=== PATIENT | female | born 1960 | race Caucasian/White ===

== ENCOUNTER 2021-12-17 19:24 | Emergency (ER) | payer OTHER ==
[~2021-12-17] VITALS: Ht 152.4 cm; Wt 78.2 kg
[2021-12-17 19:30] VITALS: BP 126/73
[2021-12-17] MEDS ORDERED: diazePAM 5 MG TAB PO ONE (20:00)
[2021-12-17] MEDS ORDERED: NACL 0.9% 1,000 ML IV ONE (20:00)
[2021-12-17] MEDS ORDERED: KETOROLAC 30 MG/ML VIAL IVP ONE (20:00)
[2021-12-17 20:09] LABS: BASOPHILS % (AUTO) 0.5 % (0.0-2.0); EOSINOPHILS # (AUTO) 0.1 K/uL (0-0.4); EOSINOPHILS % (AUTO) 1.3 % (0.0-4.0); HEMATOCRIT 38.7 % (36-48); HEMOGLOBIN 12.8 g/dL (12.0-16.0); LYMPHOCYTES # (AUTO) 2.2 K/uL (2.5-16.5); LYMPHOCYTES % (AUTO) 27.3 % (20.5-51.1); MEAN CORPUSCULAR HEMOGLOBIN 28 pg (27-31); MEAN CORPUSCULAR HGB CONC 33 g/dL (33-37); MEAN CORPUSCULAR VOLUME 84.6 fL (80-94); MONOCYTES # (AUTO) 0.7 K/uL (0.8-1.0); MONOCYTES % (AUTO) 8.6 % (1.7-9.3); NEUTROPHILS # (AUTO) 5.1 K/uL (1.8-7.7); NEUTROPHILS % (AUTO) 62.3 % (42.2-75.2); PLATELET COUNT (AUTO) 267 K/uL (140-450); RED BLOOD CELL COUNT(AUTO) 4.57 MIL/uL (4.20-5.40); RED CELL DISTRIBUTION WIDTH 14.6 % (11.6-13.7); WHITE BLOOD COUNT (AUTO) 8.2 K/uL (4.8-10.8)
[2021-12-17 20:37] LABS: ANION GAP 8.4 (8-16); CARBON DIOXIDE 28.5 mmol/L (21-32); CREATININE 0.9 mg/dL (0.6-1.3); POTASSIUM 4.9 mmol/L (3.5-5.1)
[2021-12-17] MEDS ORDERED: NAPR-54 PO (20:54)
[2021-12-17 21:21] VITALS: BP 116/64
== END 2021-12-17 21:21 | disposition home or self-care (01) ==
LOC: MED 19:24
DX: R51.9 Headache, unspecified (principal); F41.9 Anxiety disorder, unspecified; I10 Essential (primary) hypertension; Z79.1 Long term (current) use of non-steroidal anti-inflammatories (NSAID)
CPT/HCPCS: 36415; 80048; 85025; 93005; 96361; 96374; 99284; J1885; J7030

== ENCOUNTER 2024-02-14 22:39 | Emergency (ER) | payer OTHER ==
[~2024-02-14] VITALS: Ht 162.6 cm; Wt 77.1 kg
[~2024-02-14 22:39] MED LIST: NAPR-337 PO
[2024-02-14 22:45] VITALS: BP 133/64; PULSE 81; RESP 14; TEMP 97.6; O2SAT 99
--- NOTE | 2024-02-14 22:50 | NUR ---
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 SUDDEN ONSET NON PROVOKED, PT STS SHE WAS IRONING WHEN THE PALPITATIONS STARTED. TAKEN TO ROOM 2 FOR BEDSIDE TRIAGE AND EKG. HX: HTN, HL, PRE-DM
--- NOTE | 2024-02-14 22:54 | NUR ---
patient ambulated to bed 2 with family member
--- NOTE | 2024-02-14 22:56 | NUR ---
/ann marie examing patient
--- NOTE | 2024-02-14 23:08 | NUR ---
concrete mixing plant laborer at bedside
--- NOTE | 2024-02-14 23:15 | NUR ---
another family member at bedside
--- NOTE | 2024-02-14 23:18 | NUR ---
patient had right arm tendon damage, left arm is prefer for any blood work or such
[2024-02-14 23:23] LABS: BASOPHILS % (AUTO) 0.6 % (0.0-2.0); EOSINOPHILS # (AUTO) 0.1 K/uL (0-0.4); EOSINOPHILS % (AUTO) 1.4 % (0.0-4.0); HEMATOCRIT 37.7 % (36-48); HEMOGLOBIN 12.3 g/dL (12.0-16.0); LYMPHOCYTES # (AUTO) 2.1 K/uL (2.5-16.5); LYMPHOCYTES % (AUTO) 29.8 % (20.5-51.1); MEAN CORPUSCULAR HEMOGLOBIN 28 pg (27-31); MEAN CORPUSCULAR HGB CONC 33 g/dL (33-37); MONOCYTES # (AUTO) 0.8 K/uL (0.8-1.0); MONOCYTES % (AUTO) 11.5 % (1.7-9.3); NEUTROPHILS % (AUTO) 56.7 % (42.2-75.2); PLATELET COUNT (AUTO) 233 K/uL (140-450); RED BLOOD CELL COUNT(AUTO) 4.38 MIL/uL (4.20-5.40); RED CELL DISTRIBUTION WIDTH 14.3 % (11.6-13.7); WHITE BLOOD COUNT (AUTO) 7.1 K/uL (4.8-10.8)
[2024-02-14 23:48] LABS: ANION GAP 11.2 (8-16); CALCIUM 9.2 mg/dL (8.5-10.1); CREATININE 1.2 mg/dL (0.6-1.3); POTASSIUM 4.2 mmol/L (3.5-5.1)
[2024-02-14 23:49] LABS: INR 1.05 (0.8-1.2); PARTIAL THROMBOPLASTIN TIME 26.3 secs (22-35.6)
--- NOTE | 2024-02-15 00:41 | NUR ---
patient ambulated to restroom w/ steady gait
[2024-02-15 02:01] VITALS: BP 129/72; PULSE 83; RESP 15; TEMP 97.6; O2SAT 98
--- NOTE | 2024-02-15 02:14 | NUR ---
Patient appears to be resting comfortably in bed. Vital Signs within normal limits. Respirations even and unlabored.
--- NOTE | 2024-02-15 02:25 | NUR ---
Written and verbal after care instructions given and explained. Patient verbalized understanding. Ambulatory with steady gait. All questions addressed prior to discharge. Advised to follow up with PMD.
== END 2024-02-15 02:25 | disposition home or self-care (01) ==
LOC: MED 22:39
DX: R07.89 Other chest pain (principal); R00.2 Palpitations; R42 Dizziness and giddiness; E78.5 Hyperlipidemia, unspecified; E11.9 Type 2 diabetes mellitus without complications; I10 Essential (primary) hypertension; Z79.1 Long term (current) use of non-steroidal anti-inflammatories (NSAID)
CPT/HCPCS: 36415; 71045; 80048; 83880; 84484; 85025; 85610; 85730; 93005; 99285; Q0092

== ENCOUNTER 2024-03-23 18:51 | Emergency (ER) | payer OTHER ==
[~2024-03-23] VITALS: Ht 152.4 cm; Wt 70.3 kg
[2024-03-23 19:11] VITALS: BP 121/74; PULSE 94; RESP 18; TEMP 98.6; O2SAT 95
[2024-03-23] MEDS: ACETAMINOPHEN EXTRA STRENGTH 500 MG TAB PO ONE (19:45)
[2024-03-23 20:02] LABS: APPEARANCE,URINE CLEAR (CLEAR); BILIRUBIN,URINE NEGATIVE (NEGATIVE); BLOOD, URINE NEGATIVE (NEGATIVE); COLOR,URINE YELLOW (YELLOW); LEUKOCYTE ESTERASE ,URINE TRACE (NEGATIVE); NITRITE, URINE NEGATIVE (NEGATIVE); PROTEIN,URINE NEGATIVE (NEGATIVE); UGLUCOSE NEGATIVE (NEGATIVE); UROBILINOGEN,URINE 0.2 EU/dL (0.2 - 1)
[2024-03-23 20:17] LABS: BASOPHILS % (AUTO) 0.6 % (0.0-2.0); EOSINOPHILS % (AUTO) 0.2 % (0.0-4.0); HEMATOCRIT 37.2 % (36-48); HEMOGLOBIN 12.3 g/dL (12.0-16.0); LYMPHOCYTES # (AUTO) 0.7 K/uL (2.5-16.5); LYMPHOCYTES % (AUTO) 20.7 % (20.5-51.1); MEAN CORPUSCULAR HEMOGLOBIN 29 pg (27-31); MEAN CORPUSCULAR HGB CONC 33 g/dL (33-37); MEAN CORPUSCULAR VOLUME 86.5 fL (80-94); MONOCYTES # (AUTO) 0.8 K/uL (0.8-1.0); MONOCYTES % (AUTO) 22.6 % (1.7-9.3); NEUTROPHILS # (AUTO) 1.9 K/uL (1.8-7.7); NEUTROPHILS % (AUTO) 55.9 % (42.2-75.2); PLATELET COUNT (AUTO) 204 K/uL (140-450); RED CELL DISTRIBUTION WIDTH 14.9 % (11.6-13.7); WHITE BLOOD COUNT (AUTO) 3.5 K/uL (4.8-10.8)
[2024-03-23 20:31] LABS: FLU A ANTIGEN negative (NEGATIVE); FLU B ANTIGEN NEGATIVE (NEGATIVE)
[2024-03-23 20:38] LABS: ANION GAP 11.6 (8-16); CALCIUM 8.5 mg/dL (8.5-10.1); CARBON DIOXIDE 25.4 mmol/L (21-32); CREATININE 1.1 mg/dL (0.6-1.3)
[2024-03-23] MEDS ORDERED: ACET500T99 PO (21:07)
[2024-03-23 21:18] VITALS: BP 121/74; PULSE 94; RESP 18; TEMP 98.6; O2SAT 95
== END 2024-03-23 21:18 | disposition home or self-care (01) ==
LOC: MED 18:51
DX: M79.10 Myalgia, unspecified site (principal); R35.0 Frequency of micturition; I10 Essential (primary) hypertension; E78.5 Hyperlipidemia, unspecified; Z20.822 Contact with and (suspected) exposure to COVID-19; Z79.899 Other long term (current) drug therapy
CPT/HCPCS: 36415; 80048; 81003; 85025; 99283

== ENCOUNTER 2024-03-28 13:25 | Emergency (ER) | payer OTHER ==
[~2024-03-28] VITALS: Ht 152.4 cm; Wt 71.7 kg
[~2024-03-28 13:25] MED LIST changes: +ACET500T99 PO
[2024-03-28 13:32] VITALS: BP 104/65; PULSE 68; RESP 16; TEMP 98; O2SAT 97
[2024-03-28] MEDS ORDERED: GABA300C PO (19:08)
[2024-03-28] MEDS: KETOROLAC 60 MG/2 ML VIAL IM ONE (19:26)
== END 2024-03-28 19:47 | disposition home or self-care (01) ==
LOC: MED 13:25
DX: M79.18 Myalgia, other site (principal); R21 Rash and other nonspecific skin eruption; I10 Essential (primary) hypertension; Z98.890 Other specified postprocedural states; Z79.899 Other long term (current) drug therapy
CPT/HCPCS: 96372; 99283; J1885